=== PATIENT | male | born 1980 | race Caucasian/White ===

== ENCOUNTER 2016-12-17 08:59 | Inpatient (IN) | payer BC ==
[~2016-12-17] VITALS: Ht 180.3 cm; Wt 80.7 kg
[2016-12-17 09:04] VITALS: BP_SYST 148
[2016-12-17 10:01] LABS: ANION GAP 14 (5-15); CALCIUM 8.5 mg/dL (8.4-11.0); CHLORIDE 97 mmol/L (98-107); CREATININE 0.53 mg/dL (0.55-1.30); GLUCOSE 123 mg/dL (70-99); POTASSIUM 3.6 mmol/L (3.5-5.1); SODIUM SERUM 136 mmol/L (136-145); UREA NITROGEN, BLOOD 4 mg/dL (8-21)
[2016-12-17 10:03] LABS: MEAN CORPUSCULAR HGB CONC 35 % (32-36)
[2016-12-17 10:04] LABS: INR 1.7 (0.80-1.20); PROTHROMBIN TIME 18.9 SECS (9.5-12.5)
[2016-12-17 10:05] LABS: GFR AFRICAN AMERICAN 225 mL/min (>90)
[2016-12-17 10:07] LABS: ALANINE AMINOTRANSFERASE 31 U/L (12-78); ALBUMIN 2.4 g/dL (3.4-4.8); ASPARTATE AMINOTRANSFERASE 165 U/L (10-37); LIPASE 234 U/L (73-393)
[2016-12-17 10:08] LABS: ACETAMINOPHEN < 1 ug/mL (1-30)
[2016-12-17 10:10] LABS: TOTAL BILIRUBIN 20.5 mg/dL (0.0-1.0)
[2016-12-17 10:11] LABS: BASOPHILS # (AUTO) 0.1 K/uL (0.0-0.2); BASOPHILS % (AUTO) 0.5 % (0.0-2.0); HEMATOCRIT 36.9 % (36-54); HEMOGLOBIN 12.8 g/dL (14.0-18.0); LYMPHOCYTES # (AUTO) 1.2 K/uL (1.0-5.5); LYMPHOCYTES % (AUTO) 11.3 % (20.5-51.5); MONOCYTES # (AUTO) 0.9 K/uL (0.0-1.0); MONOCYTES % (AUTO) 8.5 % (1.7-9.3); NEUTROPHILS # (AUTO) 8.4 K/uL (1.8-7.7); NEUTROPHILS % (AUTO) 79.7 % (40.0-70.0); WHITE BLOOD COUNT (AUTO) 10.6 K/uL (4.8-10.8)
[2016-12-17 10:12] LABS: MEAN CORPUSCULAR HEMOGLOBIN 36 pg (27-31); MEAN CORPUSCULAR VOLUME 103 fL (79.0-98.0); PLATELET COUNT (AUTO) 128 K/uL (130-430); RED CELL DISTRIBUTION WIDTH 15.2 % (9.0-15.0)
[2016-12-17] MEDS ORDERED: cefTRIAXone 1 GM IVPB PREMIX 50 ML IV ONE (11:15)
[2016-12-17] MEDS ORDERED: metroNIDAZOLE 500 MG TABLET PO ONE (11:15)
[2016-12-17] MEDS ORDERED: MORPHINE 2 MG/ML INJ. SYRINGE IVP PRN ×2 (11:45→18:30)
[2016-12-17] MEDS ORDERED: D5NS 500 ML IV SCH (11:45)
[2016-12-17 12:10] VITALS: BP_SYST 128
[2016-12-17] MEDS: MORPHINE 2 MG/ML INJ. SYRINGE IVP PRN ×2 (12:53→18:33)
[2016-12-17] MEDS: ONDANSETRON HCL 4 MG/2 ML VIAL IVP PRN ×2 (13:28→18:36)
[2016-12-17] MEDS: PIPERACILLIN/TAZO 3.375 GM in NS 50 ML IV SCH ×2 (13:28→17:29)
[2016-12-17] MEDS: D5NS 1,000 ML IV SCH (13:28)
[2016-12-17 14:44] LABS: BILIRUBIN,URINE 3+ (NEGATIVE); BLOOD, URINE NEGATIVE (NEGATIVE); PROTEIN URINE 2+ (NEGATIVE)
[2016-12-17 14:54] LABS: CLARITY/URINE HAZY (CLEAR); COLOR,URINE AMBER (YELLOW); GLUCOSE,URINE NEGATIVE (NEGATIVE); KETONES,URINE NEGATIVE (NEGATIVE)
[2016-12-17 14:55] LABS: LEUKOCYTE ESTERASE ,URINE NEGATIVE (NEGATIVE); NITRITE, URINE NEGATIVE (NEGATIVE)
[2016-12-17 14:58] LABS: BACTERIA,URINE FEW /HPF (None Seen); RBC,URINE NONE SEEN /HPF (0-3); WBC,URINE 0-3 /HPF (0-3)
[2016-12-17 14:59] LABS: MUCUS,URINE 1+ /LPF (None Seen)
[2016-12-17 15:42] VITALS: BP_SYST 123
[2016-12-17] MEDS ORDERED: MAGNESIUM SULFATE 50 ML IV PRN (18:30)
[2016-12-17] MEDS ORDERED: ONDANSETRON HCL 4 MG/2 ML VIAL IVP PRN (18:30)
[2016-12-17] MEDS ORDERED: ACETAMINOPHEN 325 MG TABLET PO PRN (18:30)
[2016-12-17] MEDS ORDERED: DOCUSATE SODIUM 100 MG CAPSULE PO PRN (18:30)
[2016-12-17] MEDS ORDERED: POTASSIUM CHLORIDE 20 MEQ TAB.PRT.SR PO PRN (18:30)
[2016-12-17 19:00] VITALS: BP_SYST 132
[2016-12-17 20:00] VITALS: BP_SYST 132
[2016-12-17] MEDS: ZOLPIDEM TARTRATE 5 MG TABLET PO PRN (21:53)
[2016-12-18] VITALS (7 sets, daily range): BP systolic 118–147
[2016-12-18] MEDS: PIPERACILLIN/TAZO 3.375 GM in NS 50 ML IV SCH ×5 (00:17→23:06)
[2016-12-18] MEDS: D5NS 1,000 ML IV SCH ×2 (03:39→23:07)
[2016-12-18] MEDS ORDERED: FLU VACC QS 2017-18(36MOS+)/PF 0.5 ML/SYR SYRINGE I.M. PRN (05:45)
[2016-12-18 06:43] LABS: ALBUMIN 1.9 g/dL (3.4-4.8); CALCIUM 8.1 mg/dL (8.4-11.0); CREATININE 0.5 mg/dL (0.55-1.30); POTASSIUM 3.2 mmol/L (3.5-5.1)
[2016-12-18 06:55] LABS: TOTAL BILIRUBIN 20.8 mg/dL (0.0-1.0)
[2016-12-18 07:10] LABS: HEMATOCRIT 32.6 % (36-54); HEMOGLOBIN 11.4 g/dL (14.0-18.0); MEAN CORPUSCULAR HEMOGLOBIN 36 pg (27-31); MEAN CORPUSCULAR HGB CONC 35 % (32-36); MEAN CORPUSCULAR VOLUME 104 fL (79.0-98.0); PLATELET COUNT (AUTO) 103 K/uL (130-430); RED BLOOD CELL COUNT(AUTO) 3.14 MIL/uL (4.2-6.2); RED CELL DISTRIBUTION WIDTH 15.5 % (9.0-15.0)
[2016-12-18 07:15] LABS: WHITE BLOOD COUNT (AUTO) 9.3 K/uL (4.8-10.8)
[2016-12-18] MEDS ORDERED: POTASSIUM CHLORIDE 40 MEQ, LIDOCAINE JECT 2% PF 100 MG 50 MG in NS 250 ML IV ONE (08:45)
[2016-12-18 09:01] LABS: ATYPICAL LYMPHOCYTES % 0 % (0-0); BAND % (MANUAL) 4 % (0-6); BASOPHILS % (MANUAL) 0 % (0-2); EOSINOPHILS % (MANUAL) 0 % (0-7); LYMPHOCYTES % (MANUAL) 8 % (20-46); MONOCYTES % (MANUAL) 7 % (0-11)
[2016-12-18] MEDS: MORPHINE 2 MG/ML INJ. SYRINGE IVP PRN (10:18)
[2016-12-18] MEDS ORDERED: IOHEXOL 100 ML IV ONE (13:48)
[2016-12-18] MEDS ORDERED: metroNIDAZOLE 500 mg/NS 100 ML IV SCH (14:00)
[2016-12-18] MEDS: LORazepam 2 MG/ML VIAL IVP PRN (15:33)
[2016-12-19 03:36] VITALS: BP_SYST 129
[2016-12-19] MEDS: PIPERACILLIN/TAZO 3.375 GM in NS 50 ML IV SCH ×4 (05:00→23:42)
[2016-12-19 06:22] LABS: INR 2.3 (0.80-1.20)
[2016-12-19 07:06] LABS: HEPATITIS A AB, IgM Negative (Negative); HEPATITIS B CORE AB, IgM Negative (Negative); HEPATITIS B SURFACE AG Negative (Negative)
[2016-12-19 07:34] LABS: BILIRUBIN,DIRECT 21.5 mg/dL (0.0-0.3); TOTAL BILIRUBIN 25.8 mg/dL (0.0-1.0)
[2016-12-19 08:00] VITALS: BP_SYST 132
[2016-12-19] MEDS ORDERED: POTASSIUM CHLORIDE 40 MEQ, LIDOCAINE JECT 2% PF 100 MG 50 MG in NS 250 ML IV ONE (09:45)
[2016-12-19] MEDS: LORazepam 2 MG/ML VIAL IVP PRN (09:58)
[2016-12-19 11:27] VITALS: BP_SYST 139
[2016-12-19 12:10] LABS: AFP, TUMOR MARKER 4.8 ng/mL (0.0-8.3)
[2016-12-19 12:24] LABS: CARBOHYDRATE AG 19-9 49 U/mL (0-35); CEA 5.4 ng/mL (0.0-4.7)
[2016-12-19 15:32] VITALS: BP_SYST 134
[2016-12-19 20:00] VITALS: BP_SYST 137
[2016-12-19] MEDS: ZOLPIDEM TARTRATE 5 MG TABLET PO PRN (20:51)
[2016-12-19 23:49] VITALS: BP_SYST 135
[2016-12-20] MEDS: D5NS 1,000 ML IV SCH ×2 (01:08→23:08)
[2016-12-20 03:52] VITALS: BP_SYST 132
[2016-12-20] MEDS: PIPERACILLIN/TAZO 3.375 GM in NS 50 ML IV SCH ×4 (05:46→23:08)
[2016-12-20] MEDS: IBUPROFEN 400 MG TABLET PO PRN (06:29)
[2016-12-20 06:31] LABS: HEMATOCRIT 34.4 % (36-54); MEAN CORPUSCULAR HEMOGLOBIN 37 pg (27-31); MEAN CORPUSCULAR HGB CONC 35 % (32-36); MEAN CORPUSCULAR VOLUME 105 fL (79.0-98.0); PLATELET COUNT (AUTO) 97 K/uL (130-430); RED BLOOD CELL COUNT(AUTO) 3.27 MIL/uL (4.2-6.2); RED CELL DISTRIBUTION WIDTH 15.4 % (9.0-15.0); WHITE BLOOD COUNT (AUTO) 11.7 K/uL (4.8-10.8)
[2016-12-20 06:40] LABS: INR 2.5 (0.80-1.20); PROTHROMBIN TIME 27.5 SECS (9.5-12.5)
[2016-12-20 06:53] LABS: BILIRUBIN,DIRECT 22.9 mg/dL (0.0-0.3); CALCIUM 7.8 mg/dL (8.4-11.0); CREATININE 0.5 mg/dL (0.55-1.30); POTASSIUM 3.7 mmol/L (3.5-5.1)
[2016-12-20 07:14] LABS: TOTAL BILIRUBIN 27.7 mg/dL (0.0-1.0)
[2016-12-20 08:03] LABS: BAND % (MANUAL) 5 % (0-6); LYMPHOCYTES % (MANUAL) 6 % (20-46)
[2016-12-20 08:04] LABS: ATYPICAL LYMPHOCYTES % 0 % (0-0); BASOPHILS % (MANUAL) 0 % (0-2); EOSINOPHILS % (MANUAL) 1 % (0-7); MONOCYTES % (MANUAL) 8 % (0-11)
[2016-12-20] MEDS: prednisoLONE 15 MG/5 ML UDC PO SCH (09:12)
[2016-12-20] MEDS: MORPHINE 2 MG/ML INJ. SYRINGE IVP PRN ×2 (09:19→19:42)
[2016-12-20 11:22] VITALS: BP_SYST 120
[2016-12-20] MEDS: LORazepam 2 MG/ML VIAL IVP PRN (13:07)
[2016-12-20 16:35] VITALS: BP_SYST 123
[2016-12-20 20:00] VITALS: BP_SYST 131
[2016-12-20] MEDS: RIFAXIMIN 550 MG TABLET PO SCH (20:53)
[2016-12-20] MEDS: ZOLPIDEM TARTRATE 5 MG TABLET PO PRN (20:53)
[2016-12-20] MEDS: LACTULOSE 20 GM/30 ML UDC PO SCH (20:53)
[2016-12-20 23:57] VITALS: BP_SYST 104
[2016-12-21 03:10] VITALS: BP_SYST 123
[2016-12-21] MEDS: PIPERACILLIN/TAZO 3.375 GM in NS 50 ML IV SCH ×3 (05:10→18:40)
[2016-12-21 06:30] LABS: HEMATOCRIT 32.3 % (36-54); HEMOGLOBIN 11.2 g/dL (14.0-18.0); MEAN CORPUSCULAR HEMOGLOBIN 37 pg (27-31); MEAN CORPUSCULAR HGB CONC 35 % (32-36); MEAN CORPUSCULAR VOLUME 106 fL (79.0-98.0); PLATELET COUNT (AUTO) 98 K/uL (130-430); RED BLOOD CELL COUNT(AUTO) 3.06 MIL/uL (4.2-6.2); RED CELL DISTRIBUTION WIDTH 15.6 % (9.0-15.0); WHITE BLOOD COUNT (AUTO) 11.5 K/uL (4.8-10.8)
[2016-12-21 06:38] LABS: INR 2.2 (0.80-1.20); PROTHROMBIN TIME 24.6 SECS (9.5-12.5)
[2016-12-21 07:02] LABS: ALBUMIN 1.8 g/dL (3.4-4.8); BILIRUBIN,DIRECT 22.2 mg/dL (0.0-0.3); CALCIUM 7.7 mg/dL (8.4-11.0); CREATININE 0.44 mg/dL (0.55-1.30); POTASSIUM 3.5 mmol/L (3.5-5.1)
[2016-12-21 07:55] VITALS: BP_SYST 132
[2016-12-21 08:14] LABS: TOTAL BILIRUBIN 26.8 mg/dL (0.0-1.0)
[2016-12-21] MEDS: RIFAXIMIN 550 MG TABLET PO SCH ×2 (09:59→21:09)
[2016-12-21] MEDS: LACTULOSE 20 GM/30 ML UDC PO SCH ×2 (09:59→21:09)
[2016-12-21] MEDS: prednisoLONE 15 MG/5 ML UDC PO SCH (10:01)
[2016-12-21] MEDS: D5NS 1,000 ML IV SCH (10:02)
[2016-12-21] MEDS: MORPHINE 2 MG/ML INJ. SYRINGE IVP PRN ×2 (10:03→17:03)
[2016-12-21 11:14] LABS: ATYPICAL LYMPHOCYTES % 1 % (0-0); BAND % (MANUAL) 8 % (0-6); BASOPHILS % (MANUAL) 0 % (0-2); EOSINOPHILS % (MANUAL) 0 % (0-7); LYMPHOCYTES % (MANUAL) 3 % (20-46); MONOCYTES % (MANUAL) 10 % (0-11)
[2016-12-21 12:14] VITALS: BP_SYST 126
[2016-12-21] MEDS ORDERED: LACTULOSE 20 GM/30 ML UDC PO ONE (14:30)
[2016-12-21] MEDS ORDERED: prednisoLONE 15 MG/5 ML UDC PO ONE (14:30)
[2016-12-21 16:51] VITALS: BP_SYST 126
[2016-12-21 19:30] VITALS: BP_SYST 121
[2016-12-21] MEDS: ZOLPIDEM TARTRATE 5 MG TABLET PO PRN (22:05)
[2016-12-22] MEDS: PIPERACILLIN/TAZO 3.375 GM in NS 50 ML IV SCH ×4 (00:29→18:06)
[2016-12-22 04:13] VITALS: BP_SYST 112
[2016-12-22 06:29] LABS: HEMATOCRIT 32.4 % (36-54); HEMOGLOBIN 11.3 g/dL (14.0-18.0); MEAN CORPUSCULAR HEMOGLOBIN 37 pg (27-31); MEAN CORPUSCULAR HGB CONC 35 % (32-36); MEAN CORPUSCULAR VOLUME 106 fL (79.0-98.0); PLATELET COUNT (AUTO) 114 K/uL (130-430); RED BLOOD CELL COUNT(AUTO) 3.07 MIL/uL (4.2-6.2); WHITE BLOOD COUNT (AUTO) 12.9 K/uL (4.8-10.8)
[2016-12-22 06:38] LABS: CALCIUM 7.6 mg/dL (8.4-11.0); CREATININE 0.52 mg/dL (0.55-1.30); POTASSIUM 3.6 mmol/L (3.5-5.1)
[2016-12-22] MEDS: D5NS 1,000 ML IV SCH (07:37)
[2016-12-22 08:12] VITALS: BP_SYST 138
[2016-12-22 08:28] LABS: RED CELL DISTRIBUTION WIDTH 15.8 % (9.0-15.0)
[2016-12-22 08:45] LABS: BAND % (MANUAL) 3 % (0-6); BASOPHILS % (MANUAL) 0 % (0-2); EOSINOPHILS % (MANUAL) 0 % (0-7); LYMPHOCYTES % (MANUAL) 6 % (20-46); MONOCYTES % (MANUAL) 8 % (0-11)
[2016-12-22] MEDS: LACTULOSE 20 GM/30 ML UDC PO SCH (09:12)
[2016-12-22] MEDS: RIFAXIMIN 550 MG TABLET PO SCH (09:13)
[2016-12-22] MEDS: prednisoLONE 15 MG/5 ML UDC PO SCH (09:14)
[2016-12-22] MEDS: MORPHINE 2 MG/ML INJ. SYRINGE IVP PRN ×2 (10:26→18:10)
[2016-12-22 11:16] LABS: ALBUMIN 1.8 g/dL (3.4-4.8); BILIRUBIN,DIRECT 20.3 mg/dL (0.0-0.3)
[2016-12-22 11:23] LABS: PROTHROMBIN TIME 21.7 SECS (9.5-12.5)
[2016-12-22 11:27] LABS: TOTAL BILIRUBIN 25.3 mg/dL (0.0-1.0)
[2016-12-22] MEDS: IBUPROFEN 400 MG TABLET PO PRN (12:00)
[2016-12-22 12:09] VITALS: BP_SYST 118
[2016-12-22 17:02] VITALS: BP_SYST 129
[2016-12-22 17:29] VITALS: BP_SYST 129
== END 2016-12-22 19:30 | disposition short-term general hospital (02) | DRG 872 ==
LOC: SED 08:59 → SMU 11:38
PROVIDERS: ADMIT General Practice; ATTEND General Practice
DX: A41.89 Other specified sepsis (principal); D69.6 Thrombocytopenia, unspecified; E44.0 Moderate protein-calorie malnutrition; R16.2 Hepatomegaly with splenomegaly, not elsewhere classified; K74.60 Unspecified cirrhosis of liver; M54.9 Dorsalgia, unspecified; G89.29 Other chronic pain; F12.90 Cannabis use, unspecified, uncomplicated; K70.11 Alcoholic hepatitis with ascites; K70.40 Alcoholic hepatic failure without coma; Z90.49 Acquired absence of other specified parts of digestive tract
CPT/HCPCS: 36415; 71020-TC; 74160-TC; 74181; 76700-TC; 78226; 80048; 80053; 80074; 80076; 81000-TC; 82105; 82140-TC; 82378; 83605; 83690-TC; 83735-TC; 85007; 85025; 85027; 85610-TC; 85730-TC; 86301; 86480; 86592; 87040-TC; 87086; 96365; 99285; A9537; G0480; J0696; J2060; J2270; J2405; J2543; J3475; J3480; J3490; J7042; J7050; Q2037; Q9967